=== PATIENT | male | born 1960 ===

== ENCOUNTER 2019-12-05 09:42 | Outpatient (CLI) | payer OTHER ==
[~2019-12-05 09:42] MED LIST: LOVASTATIN10 MG; LOVAZA1 G; SYNTHROID50 MCG
== END 2019-12-05 09:56 | disposition home or self-care (01) ==
LOC: NUCLEAR 09:42
PROVIDERS: ATTEND General Practice
DX: M81.0 Age-related osteoporosis without current pathological fracture (principal); Z13.820 Encounter for screening for osteoporosis

== ENCOUNTER 2019-12-06 11:28 | Outpatient (CLI) | payer OTHER | END 2019-12-06 11:34 | disposition home or self-care (01) | LOC: NUCLEAR 11:28 | PROVIDERS: ATTEND General Practice | DX: I87.8 Other specified disorders of veins (principal); I73.9 Peripheral vascular disease, unspecified ==

== ENCOUNTER 2019-12-12 10:12 | Outpatient (CLI) | payer OTHER | END 2019-12-12 10:30 | disposition home or self-care (01) | LOC: NUCLEAR 10:12 | PROVIDERS: ATTEND General Practice | DX: I73.9 Peripheral vascular disease, unspecified (principal); I87.8 Other specified disorders of veins; I87.2 Venous insufficiency (chronic) (peripheral) ==

== ENCOUNTER 2019-12-20 15:24 | Outpatient (CLI) | payer OTHER | END 2019-12-20 15:28 | disposition home or self-care (01) | LOC: RAD 15:24 | PROVIDERS: ATTEND General Practice | DX: M06.4 Inflammatory polyarthropathy (principal) ==